=== PATIENT | female | born 1960 | race Caucasian/White ===

== ENCOUNTER 2016-09-22 09:46 | Emergency (ER) | payer SELFPAY ==
--- NOTE | 2016-09-23 08:16 | ER ---
ADMIT: 09/22/2016 RM/LOC: ER [facility] MR#: [id number] [address] [id number] [place] [address] [address] [place] [address] Emergency Room Report SEX: F AGE: 56 : 1960 DATE: 09/22/2016 ADDENDUM: This is a 56-year-old, white female coming in with kind of nonspecific symptoms, but she has a little tachycardia, has not felt well. She has been worked up here and indications are suggestive of hyperthyroidism, unknown etiology. She has a bit of failure with this but nothing active. I spoke with Dr. Saldaña, she is going to see her on . We are going to start her on metoprolol 50 q.12 or b.i.d. until she sees her and then we have ordered a thyroid ultrasound and thyroid scan tomorrow, which will be given to her and she will continue with evaluation and treatment. CONDITION ON DISCHARGE: Fair. Adam Poe MD/ chandni JOB #: [id number] CC: Adam Poe MD, Attending Physician UNKNOWN, Family Physician
== END 2016-09-22 15:10 | disposition home or self-care (01) ==
LOC: ER 09:46
DX: I50.9 Heart failure, unspecified (principal); E05.90 Thyrotoxicosis, unspecified without thyrotoxic crisis or storm; Z90.49 Acquired absence of other specified parts of digestive tract